=== PATIENT | male | born 1945 | race Caucasian/White ===

== ENCOUNTER 2018-04-21 09:21 | Outpatient (CLI) | payer MEDICARE, BC, SELFPAY ==
--- NOTE | 2018-04-21 09:18 | DI.RAD_ITS ---
SYMPTOMS/DIAGNOSIS: F/U TKA RIGHT KNEE: The patient is status post TKR, the prosthesis in excellent position, surrounding bone intact with no interval change when compared with prior studies.
== END 2018-04-21 09:41 ==
PROVIDERS: PCP Physician Assistant Medical; Visit Provider Orthopaedic Surgery
DX: M25.561 Pain in right knee (principal); Z96.651 Presence of right artificial knee joint; Z47.1 Aftercare following joint replacement surgery
CPT/HCPCS: 99212; 99213; 73560

== ENCOUNTER 2018-04-21 11:25 | Outpatient (CLI) | payer MEDICARE, BC, SELFPAY ==
--- NOTE | 2018-04-21 09:21 | DI.RAD_ITS ---
SYMPTOMS/DIAGNOSIS: S/P TOTAL KNEE REPLACEMENT LEFT KNEE: The patient is status post TKR, the prosthesis in excellent position, surrounding bone intact with no interval change when compared with prior images.
== END 2018-04-21 11:45 ==
PROVIDERS: PCP Physician Assistant Medical; Visit Provider Physician Assistant Surgical
DX: M25.562 Pain in left knee (principal); Z96.652 Presence of left artificial knee joint; Z47.1 Aftercare following joint replacement surgery
CPT/HCPCS: 99212; 99213; 73560

== ENCOUNTER 2018-05-06 08:37 | Outpatient (REF) | payer MEDICARE, BC, SELFPAY ==
[2018-05-06 18:44] LABS: Glucose 116 mg/dL (70-100)
[2018-05-09 09:22] LABS: PSA, Screening 2.3 ng/ml (0-6.5)
== END 2018-05-06 08:57 ==
LOC: NCHCN 08:37
PROVIDERS: PCP Physician Assistant Medical; Visit Provider Nurse Practitioner Family
DX: R73.9 Hyperglycemia, unspecified (principal); R06.09 Other forms of dyspnea; I10 Essential (primary) hypertension; E78.2 Mixed hyperlipidemia; Z12.5 Encounter for screening for malignant neoplasm of prostate
CPT/HCPCS: 82947; 84153

== ENCOUNTER 2018-10-05 08:07 | Outpatient (REF) | payer MEDICARE, BC, SELFPAY ==
[2018-10-05 20:42] LABS: Anion Gap 9.8 mmol/L (3-11); BUN 14 mg/dL (7-18); CO2 27.2 mmol/L (21.0-32.0); CREATININE 0.95 mg/dL (0.70-1.30); Calcium 8.8 mg/dL (8.5-10.1); Calculated LDL 35 mg/dL; Chloride 96 mmol/L (98-107); Cholesterol 88 mg/dL (50-200); Glucose 113 mg/dL (70-100); HDL Cholesterol 34 mg/dL (40-60); Potassium 3.8 mmol/L (3.5-5.1); Sodium 133 mmol/L (136-145); Triglyceride 98 mg/dL (30-150)
== END 2018-10-05 08:27 ==
LOC: NCHCN 08:07
PROVIDERS: PCP Physician Assistant Medical; Visit Provider Nurse Practitioner Family
DX: I10 Essential (primary) hypertension (principal); R73.9 Hyperglycemia, unspecified
CPT/HCPCS: 80048; 80061; 83721

== ENCOUNTER 2019-01-04 11:33 | Outpatient (REF) | payer MEDICARE, BC, SELFPAY ==
[2019-01-04 20:30] LABS: HCT 40.8 % (40.0-50.0); HGB 13.7 g/dL (13.5-17.5); Mean Corp. HGB Concentration 33.6 g/dL (32.0-36.0); Mean Corpuscular Hemoglobin 31.3 pg (27.0-33.0); Mean Corpuscular Volume 93.2 fL (80-95); Platelet Count 206 x1000/uL (130-400); RBC 4.38 m/cumm (4.50-6.00); RBC Distribution Width 11.7 % (11.8-14.1); White Blood Cell Count 7.12 k/cumm (4.4-10.8)
[2019-01-04 20:37] LABS: Anion Gap 8.3 mmol/L (3-11); BUN 13 mg/dL (7-18); CO2 28.7 mmol/L (21.0-32.0); CREATININE 0.96 mg/dL (0.70-1.30); Chloride 97 mmol/L (98-107); Glucose 135 mg/dL (70-100); Sodium 134 mmol/L (136-145)
== END 2019-01-04 11:53 ==
LOC: NCHCN 11:33
PROVIDERS: PCP Nurse Practitioner Family; Visit Provider Nurse Practitioner Family
DX: Z51.81 Encounter for therapeutic drug level monitoring (principal); R69 Illness, unspecified
CPT/HCPCS: 80048; 85027

== ENCOUNTER 2019-01-12 00:06 | Outpatient (CLI) | payer MEDICARE, BC, SELFPAY ==
--- NOTE | 2019-01-12 08:15 | DI.NM_ITS ---
APPROVED REPORT Exam: Exercise Treadmill Patient Location: Out-Patient Stress Nurse: Antonette Velasco RN Baseline Rhythm: RBBB BMI: 26.75 Indications: Patient reports a few weeks ago he had an episode of sharp, non radiating left sided c hest pain. It occured while walking around it subsided within seconds and he has no further chest p ains since. Medical History Medical History: CAD s/p stent, RBBB, HTN Cardiac Medications: Aspirin. Hydrochlorothiazide. Atorvastatin. Plavix. Allergies: IV dye Cardiac Risk Factors: HTN, Hyperlipidemia, FHX of CAD Previous Cardiac Procedures: PCI Pretest Chest Pain Characteristics: Exertional Chest pain Exercise History: Physically active Lung Sounds: Clear to auscultation Heart Sounds: Regular Stress Test Details Test: Exercise stress testing was performed using a Gianni protocol. Nuclear Acquisition: Rest Tc-99m/Stress Tc-99m 1 day Rest Isotope: Tc-99m Sestamibi. Dose: 10.6 Date: 01/12/2019 Injection Time: 0815 Stress Isotope: Tc-99m Sestamibi. Dose: 33.0 Date: 01/12/2019 Injection Time: 1010 HR Resting HR: 54 bpm Max Heart Rate (APMHR): 146 bpm Resting HR Supine: 54 bpm Target HR (85% APMHR): 124 bpm Resting HR Standin bpm Max HR Achieved: 135 bpm % of APMHR: 92 Recovery HR: 66 bpm HR response to stress: Normal HR response to stress BP Resting BP: 138//76 mmHg Resting BP Supine: 138/76 mmHg Resting BP Standin/64 mmHg Max BP: 210/56 mmHg Recovery BP: 144/76 mmHg BP response to stress: Abnormal hypertensive response to stress. ECG Resting ECG: RBBB Stress ECG: RBBB ST Change: Upsloping ST depression Lead(s): V4, V5, V6, Time of Change: 07 of exercise to 2 mins recovery Stage: stage 3 to recovery [address] Deviation: 0.5 mm Arrhythmia: None Recovery Arrhythmia: None Clinical Time of Stop for Gianni: 0901 Reason for Termination: Fatigue Exercise duration: 9 min1 sec Highest Stage Achieved: Stage 3: 3.4 mph at 14% grade. Exercise capacity: 10.6 METs Functional Capacity: Above average capacity Scale: Active Angina Score: None Delgado Treadmill Score: 6.5 Stress ECG Conclusion 1. Patient demonstrated good exercise tolerance. 2. This represents a maximal stress test. 3. The ECG portion of the exam did not suggest ischemia Delgado Treadmill Score is 6.5 which is Low risk. Test Summary Supine 54 138/76 Standing 56 118/64 1 03:00 10 1.7 92 4.64 144/80 2 02:59 12 2.5 115 7.05 160/72 3 03:00 14 3.4 133 10.16 Immediate recovery 83 168/74 1 minute recovery 08:50 0 0 135 1 144/76 3 minutes recovery 60 168/74 6 minutes recovery 65 148/72 8 minutes recovery 66 144/76 MPI Conclusion The imaging portion of the exam does not demonstrate ischemia. EF = 59% without WMA The Delgado Score ( 5) estimates an annual cardiovascular mortality of 0% and a five year survival of 95 % Using the Delgado Score there is a low probability of any angiographic coronary disease. This represents a normal SPECT stress test
== END 2019-01-12 00:26 ==
PROVIDERS: PCP Nurse Practitioner Family; Visit Provider Nurse Practitioner Family
DX: R07.89 Other chest pain (principal); I25.10 Atherosclerotic heart disease of native coronary artery without angina pectoris; I45.10 Unspecified right bundle-branch block; I10 Essential (primary) hypertension; E78.5 Hyperlipidemia, unspecified; Z95.5 Presence of coronary angioplasty implant and graft; Z82.49 Family history of ischemic heart disease and other diseases of the circulatory system
CPT/HCPCS: 78452; 93016; 93018; 93017